=== PATIENT | male | born 1960 ===

== ENCOUNTER 2025-05-03 18:12 | Emergency (ER) | payer MEDICAID ==
[~2025-05-03] VITALS: Ht 185.4 cm; Wt 180.0 kg
[2025-05-03 18:15] VITALS: BP 132/78; PULSE 68; RESP 16; O2SAT 98
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
[2025-05-03 18:41] VITALS: TEMP 98.4
== END 2025-05-03 18:42 | disposition home or self-care (01) ==
LOC: ER 18:13
DX: Z02.89 Encounter for other administrative examinations (principal); V89.2XXA Person injured in unspecified motor-vehicle accident, traffic, initial encounter; Y92.410 Unspecified street and highway as the place of occurrence of the external cause; Y93.89 Activity, other specified; Y99.8 Other external cause status
CPT/HCPCS: 99283